=== PATIENT | female | born 1945 | race African-American/Black ===

== ENCOUNTER → 2016-05-24 | Outpatient (CLI) | payer BC, MEDICARE ==
[~2016-05-24] MED LIST: ACETAMINOPHEN PO; CLONIDINE HCL0.1 MG PO; COZAAR PO; HAIR, SKIN & N1 EACH PO; HCTZ PO; HYDRALAZINE HC100 MG PO; IBUPROFEN800 MG PO; LASIX PO; LORTAB 5/500 TA1 TA2 PO; NORVASC10 MG PO; POTASSIUM CHLO20 ME1 PO; SODIUM CHLORIDE1 GM PO
[2016-05-24 09:37] LABS: HEMATOCRIT 37.5 % (35.0-45.0); HEMOGLOBIN 12.8 gm/dL (12.0-16.0); MEAN CELL VOLUME 87.8 FL (83-96); MEAN CORPUSCULAR HEMOGLOBIN 30.1 PG (28-34); MEAN CORPUSCULAR HGB CONC 34.2 g/dL (30-36); MEAN PLATELET VOLUME 7.6 FL (6.5-11.5); RED BLOOD COUNT 4.26 X10e (3.90-5.30); RED CELL DISTRIBUTION WIDTH 13.9 % (11.0-15.5); WHITE BLOOD COUNT 7.7 X10e3 (4.0-10.5)
[2016-05-24 10:44] LABS: BUN/CREATININE RATIO 21.11; CALCIUM SERUM 9.6 mg/dL (8.4-10.2); CREATININE SERUM 0.9 mg/dL (0.6-1.4); GLOM FILT RATE Estimated 76.2 mL/min (>60); POTASSIUM 3.2 mmol/L (3.5-5.1)
== END | disposition home or self-care (01) ==
LOC: CLAB 09:04
PROVIDERS: Internal Medicine Nephrology
DX: N18.3 Chronic kidney disease, stage 3 (moderate) (principal)
CPT/HCPCS: 36415; 80048; 85027

== ENCOUNTER 2016-06-21 16:22 | Inpatient (IN) | payer BC, MEDICARE ==
--- NOTE | ~2016-06-21 | OR ---
Unit #: [id number] #: [id number] Patient: JILLIAN GATES [id number] [address] [place], [place] [address] [id number] MR#: [id number] NAME: JILLIAN GATES ROOM: 571 Date of Procedure: 06/26/2016 Admission Date: 06/21/2016 Surgeon: Joshua Gonzales M.D. : 1945 Attending Physician: Oral Burgess M.D. Primary Care Physician: Barry Rojas M.D. PROCEDURE OPERATIVE NOTE PROCEDURE PERFORMED Colonoscopy to cecum. INDICATIONS Patient with anemia, weight loss, as well as, elevated CEA levels undergoing colonoscopy. MEDICATION Monitored anesthesia. POSTOPERATIVE FINDINGS Colonoscopy completed to cecum: 1. No polyps, masses are seen. 2. Extensive diverticulosis. 3. Prep was poor leading to suboptimal visualization of the mucosa. Flat or smaller polyps could have been missed. PLAN Symptomatic treatment. DESCRIPTION OF PROCEDURE The patient was explained all the procedure risks and benefits along with risks and benefits of anesthesia. She was brought to the endoscopy room. Propofol anesthesia was given. Rectal exam was done which was normal. Colonoscope was lubricated, passed through rectum, advanced under direct vision all the way to cecum. Cecum was identified by ileocecal valve and appendiceal orifice. I then started to pull the scope out carefully looking. No polyps, masses, or colitis were seen. On retroflexion of rectum, small hemorrhoid seen. Scope gently pulled out. She tolerated it well. Dictated by... Zaire Alvarez/johann TD: 06/26/2016 11:44 JOB #: [id number] Unit #: [id number] #: [id number] Patient: JILLIAN GATES PROCEDURE OPERATIVE NOTE Page 1 of 1 X Joshua Gonzales MD X PROCEDURE OPERATIVE NOTE
--- NOTE | ~2016-06-21 | DS ---
Unit #: [id number] #: [id number] Patient: JILLIAN GATES [id number] [address] [address] [id number] I MR#: [id number] NAME: JILLIAN GATES ROOM: 571 Age: 70 Sex: F Admission Date: 06/21/2016 : 1945 Discharge Date: 06/27/2016 Attending Physician: Oral Burgess M.D. Primary Care Physician: Barry Rojas M.D. DISCHARGE SUMMARY ADDENDUM REPORT Please see discharge summary for details of hospital course. In addition, Cozaar was decreased to 25 mg p.o. daily, as well as Norvasc was decreased to 2.5 mg p.o. daily secondary to decreased blood pressure through hospital course. Sodium chloride tablets 2 grams p.o. t.i.d. is to be continued indefinitely per renal, as well as K-Dur 40 mEq is to be continued on a daily basis as well. Remainder of hospital course as well as medications is as stated above. Dictated by... Zaire Magana/mohan TD: 06/28/2016 11:09 JOB #: [id number] DISCHARGE SUMMARY Page 1 of 1 X Oral Burgess MD X DISCHARGE SUMMARY
--- NOTE | ~2016-06-21 | EKG ---
PATIENT: JILLIAN GATES UNIT #: [id number] Ventricular Rate: 77 BPM Atrial Rate: 77 BPM P-R Interval: 164 ms QRS Duration: 124 ms Q-T Interval: 486 ms QTC Calculation(Bezet): 549 ms P [place]: 64 degrees Calculated R [place]: 25 degrees Calculated T [place]: 98 degrees Diagnosis Line: Sinus rhythm with occasional Premature ventricular Diagnosis Line: complexes Diagnosis Line: Left ventricular hypertrophy with QRS widening Diagnosis Line: ST and T wave abnormality, consider lateral ischemia Diagnosis Line: Abnormal ECG Diagnosis Line: No previous ECGs available Diagnosis Line: Confirmed by DANE HUFFMAN MD ([id number]) on Diagnosis Line: 06/22/2016 11:08:40 PM INTERPRETING MD: GRACIE
--- NOTE | ~2016-06-21 | CT55 ---
[facility] A Service of [facility] RADIOLOGY TEXT RESULTS PATIENT: JILLIAN GATES LOCATION: [facility] 571- : 47 UNIT #: [id number] AGE: [address]: Bibiana Muhammad MD SEX: F ORDER DR: [id number] [place] [id number] [facility]. [place], [place] [address] [id number] I MR#: [id number] #: [id number] NAME: JILLIAN GATES : 1945 SEX: F STUDY DATE/TIME: 06/22/2016 10:41 UNIT: [facility] ROOM: [facility] STUDY DESCRIPTION: CT Chest W Con Attending Physician: Bibiana Muhammad M.D. Ordering Physician: Physician Non-Staff Primary Care Physician: Barry Rojas M.D. MEDICAL IMAGING REPORT This report is preliminary unless electronic signature is present EXAM CT of the chest with contrast INDICATIONS Cough, congestion and chest pain for 1.[address] yesterday. TECHNIQUE This CT exam was performed with one or more of the following radiation dose reduction techniques: automatic exposure control, adjustment of mA and/or kV according to patient size, and iterative reconstruction. CT of the chest was performed following administration of IV contrast. Coronal and sagittal reformatted images were obtained. Comparison is made with yesterday's noncontrast chest CT. FINDINGS There is no suspicious lymphadenopathy. There is no pleural effusion. Emphysema. Stable 6 mm nodule in the base of the right lower lobe. Enlargement of the main pulmonary artery which is nonspecific but can be seen of pulmonary tree hypertension. No infiltrates. Small hiatal hernia. The bone windows demonstrate degenerative changes thoracic spine. IMPRESSION No change since yesterday's study. No new infiltrates. Stable 6 mm pulmonary nodule right lung base. 6-month followup chest CT recommended to document stability. Dictated by... Dayne Grande M.D. THIS IS AN ELECTRONICALLY VERIFIED REPORT [facility] A Service of [facility] RADIOLOGY TEXT RESULTS PATIENT: JILLIAN GATES LOCATION: C5 571-01 : 47 UNIT #: [id number] AGE: [address]: Bibiana Muhammad MD SEX: F ORDER DR: Dayne Grande M.D. at 06/22/2016 4:05 PM Lisa TD: 06/22/2016 14:16 JOB #: [id number] MEDICAL IMAGING REPORT Page 1 of 1 COPY
--- NOTE | ~2016-06-21 | CT71 ---
[facility] A Service of [facility] RADIOLOGY TEXT RESULTS PATIENT: JILLIAN GATES LOCATION: C5 57-01 : [birth year] UNIT #: [id number] AGE: [address]: Oral Burgess MD SEX: F ORDER DR: [id number] [facility] [address] [facility]. [place], [place] [address] [id number] MR#: [id number] Acc #: [id number] NAME: JILLIAN GATES : 1945 SEX: F STUDY DATE/TIME: 06/21/2016 16:48 UNIT: [facility] ROOM: STUDY DESCRIPTION: CT Head Wo Contrast Attending Physician: Sukhi Quintero M.D. Ordering Physician: Sukhi Quintero M.D. Primary Care Physician: Barry Rojas M.D. MEDICAL IMAGING REPORT This report is preliminary unless electronic signature is present EXAM CT head. DATE OF EXAM 06/21/2016 HISTORY Headache. Sent to ER today for abnormal labs. Hypertension. TECHNIQUE CT head performed skull base through vertex without intravenous contrast. This CT exam was performed with one or more of the following radiation dose reduction techniques: automatic exposure control, adjustment of mA and/or kV according to patient size, and iterative reconstruction. COMPARISON No prior CTs of head for comparison. FINDINGS Brainstem unremarkable. Cerebellum and cerebral hemispheres show normal huang matter-white matter differentiation. No hemorrhage. No evidence of acute cortical ischemia. Periventricular and deep white matter tract hypodensities bilaterally, and relatively symmetric, likely reflecting small chronic, small vessel ischemic change given history of hypertension. The midline structures are nondisplaced. Basal ganglia are intact. Ventricles, cisterns and sulci show mild generalized enlargement consistent with mild generalized atrophy. No intra or extraaxial mass effect or abnormal intracranial fluid collection. Cavernous carotid arterial calcifications are seen. No indication of sinusitis. No acute bony abnormality. IMPRESSION [facility] A Service of [facility] RADIOLOGY TEXT RESULTS PATIENT: JILLIAN GATES LOCATION: [facility] 571 : 47 UNIT #: [id number] AGE: [address]: Oral Burgess MD SEX: F ORDER DR: 1. No acute abnormality is seen in the brain. If the patient has ongoing neurologic symptoms, consider follow-up imaging. 2. Periventricular and deep white matter tract probable sequelae of chronic microvascular ischemia. 3. Mild atrophy. 4. Vascular calcifications. Dictated by... Truong Rockwell M.D. THIS IS AN ELECTRONICALLY VERIFIED REPORT Truong Rockwell M.D. at 06/26/2016 10:29 AM Jose TD: 06/21/2016 18:39 JOB #: [id number] MEDICAL IMAGING REPORT Page 1 of 1 COPY
--- NOTE | ~2016-06-21 | DS ---
Unit #: [id number] #: [id number] Patient: JILLIAN GATES [id number] [address] [place], [place] [address] [id number] I MR#: [id number] NAME: JILLIAN GATES ROOM: 571 Age: 70 Sex: F Admission Date: 06/21/2016 : 1945 Discharge Date: 06/27/2016 Attending Physician: Oral Burgess M.D. Primary Care Physician: Barry Rojas M.D. DISCHARGE SUMMARY REASON FOR ADMISSION Abnormal laboratory studies. HISTORY OF PRESENT ILLNESS/HOSPITAL COURSE The patient is a very pleasant, 70-year-old female with a prior history of hypertension, who had not been feeling well for the past two or three weeks prior to admission. She had decreased appetite, lost approximately 30 to 40 pounds over past three to four months. She apparently had blood work done at her primary care physician's office which was noted for a sodium of 120, potassium of 2.2 and, therefore, was asked to come to the emergency room for further evaluation. She was subsequently admitted for hyponatremia, hypokalemia as well as weight loss. Initially, through her hospital course, she underwent routine laboratory studies including imaging studies as well. Her chest x-ray raised the possibility of a lung nodule and, in regards to the same, patient underwent a CT chest with contrast on 06/22/2016. It did show a stable 6 mm pulmonary nodule in the right lung base. Six-month followup chest CT was recommended to document stability. Dr. Bueno of [facility] followed the patient through her hospital course. She was treated appropriately for hyponatremia. At one time, her sodium level did rise to 130. This morning it is currently at 125. She did receive Samsca in hospital admission and she will be discharged with sodium chloride 2 g p.o. q.8. Duration as well as prescription will be verified by Dr. Bueno prior to discharge. It is requested that at time of discharge, she should follow up with her primary care physician to which she has requested to follow up with a new primary care physician and, therefore, information has been given for Dr. Mamta Resendiz at [facility] for followup. She should follow up in approximately 7 to 10 days for repeat BMP. Also noted was, in regards to patient's weight loss, she underwent GI consultation. The patient underwent both upper GI endoscopy as well as colonoscopy. Although her colonoscopy revealed poor prep, both studies were essentially unremarkable. At this point in time, the patient is clinically stable for discharge. Coincidentally, it was noted that she did undergo a CT abdomen and pelvis in regards to the aforementioned weight loss on 06/23/2016. It did reveal Unit #: [id number] #: [id number] Patient: JILLIAN GATES several kidney cysts which were noted and outpatient CT and/or MRI of kidneys was recommended. This too will be coordinated with patient's new primary care physician. The patient does have a prior history of a renal artery stent, patent on the left side. She does have renal artery stenosis as well as dense calcification which was noted on aforementioned CT. This too will be followed as an outpatient with vascular followup. FINAL DISCHARGE DIAGNOSES 1. Hyponatremia on admission, now improved. 2. Hypokalemia on admission, now resolved. 3. Pulmonary nodule, 6 mm, outpatient followup recommended. 4. Kidney cyst/renal artery stenosis. Outpatient followup for repeat CT with IV contrast as well as vascular evaluation. 5. Weight loss, approximately 30 to 40 pounds over the past three to four months likely secondary to decreased p.o. intake. 6. Anemia. Baseline hemoglobin close to 10. 7. History of hypertension. Discharge laboratory studies include a creatinine of 0.9, aforementioned hemoglobin of approximately 10, which likely represents patient's baseline. DISCHARGE MEDICATIONS 1. Tylenol 650 mg p.o. q.6 p.r.n. 2. Norvasc 10 mg p.o. daily. 3. Lasix 40 mg p.o. daily. 4. Clonidine 0.2 mg p.o. b.i.d. 5. Hydralazine 100 mg p.o. q.8. 6. Cozaar 25 mg p.o. daily. 7. Multivitamin daily. 8. Sodium chloride 2 g p.o. t.i.d. Duration to be determined by [facility] prior to discharge. Followup as mentioned above. Dictated by... Zaire Magana TD: 06/28/2016 11:07 JOB #: [id number] DISCHARGE SUMMARY Page 1 of 1 X Oral Burgess MD DISCHARGE SUMMARY
--- NOTE | ~2016-06-21 | CO ---
Unit #: [id number] #: [id number] Patient: JILLIAN GATES [id number] [address] [place], [place] [address] [id number] MR#: [id number] NAME: JILLIAN GATES ROOM: 571 Age: 70 Sex: F Admission Date: 06/21/2016 : 1945 Attending Physician: Bibiana Muhammad M.D. Primary Care Physician: Barry Rojas M.D. CONSULTATION REPORT REASON FOR CONSULTATION Weight loss. HISTORY OF PRESENTING ILLNESS The patient is a very pleasant 70-year-old female who actually presented to the emergency department following labs collected at Dr. Rose's office which were abnormal. On workup in the ER, she reported a 30 to 40 pound weight loss over the past couple of years. She has never had a colonoscopy done. At this time she denies any GI complaints including abdominal pain, change in bowel habits, blood in stool, nausea, vomiting, GERD or dysphagia. PAST MEDICAL HISTORY Notable for: 1. Hypertension. 2. Chronic kidney disease. 3. She has also had a renal artery stent placed in October 2015. ALLERGIES None known. HOME MEDICATIONS Hydrochlorothiazide. SOCIAL HISTORY The patient lives at home. Smokes three to four cigarettes daily. Denies alcohol or illicit drugs. FAMILY HISTORY Notable for a sister with hypertension. REVIEW OF SYSTEMS A complete ten point review of systems was completed and negative except as mentioned in the HPI. PHYSICAL EXAMINATION GENERAL: The patient is a very pleasant 70-year-old female, currently in no acute distress. VITAL SIGNS: Temperature is 97.8, pulse is 88, respirations 16, blood pressure is 161/65. HEENT: PERRLA. NECK: Supple. CARDIAC: S1, S2. LUNGS: Clear to auscultation. Unit #: [id number] #: [id number] Patient: JILLIAN GATES ABDOMEN: Soft, rounded. Nontender, nondistended. Positive bowel sounds. NEURO: The patient is alert and oriented x3. DIAGNOSTIC STUDIES IMAGING: CT abdomen and pelvis was completed which showed no acute findings. However, did show right renal atrophy as well as low density lesions in the kidneys which were too small to characterize. A lesion was also found in the right lower lobe and recommended outpatient followup. LABORATORY DATA: Chemistry this morning showed a sodium of 130, potassium 3.1, CEA was 2.7. (1) is still pending. White count 7.8, hemoglobin is 10.7, hematocrit 30.9, platelets are 196. ASSESSMENT AND PLAN 1. Weight loss: Will plan for a colonoscopy tomorrow. Prep today. 2. Hypokalemia and hyponatremia, being corrected and worked up by renal. 3. Hypertension. Thank you for this interesting consult. Will continue to follow along. Dictated by... Ban Johnson A.P.R.N. for Zaire Alvarez/bryan TD: 06/25/2016 12:51 JOB #: [id number] CONSULTATION REPORT Page 1 of 1 X X CONSULTATION REPORT
--- NOTE | ~2016-06-21 | A ---
[facility] Nutrition Therapy DATE: 06/22/16 Patient: JILLIAN GATES Physician: MORIS Address: [address] [place] [address] ROAD Room/Bed: [address] [place] [address], Zip: [place] [address] Admit Date: 06/21/16 Date of : [birth year] Height: 5 3 Weight: 101 46.1 NUTRITIONAL ASSESSMENT: REASON: LOW BMI + CONSULT PT IS 70 Y.O. FEMALE ADMITTED FOR HYPONATREMIA, HYPOKALEMIA PMH: HTN, TOBACCO ABUSE Anthropometrics: 5'3", WT: 101-121# (46KG-55 KG), BMI: 17.9-21.4, 88%-105%IBW -PER FAMILY, PT WEIGHS ~120# BUT PT LOOKS "SMALLER" Labs: GLU: 117, NA+: 121 Meds: ZOFRAN, NACL, KCL I/O & Bowel function: 240/3 Skin Integrity: NO KNOWN SKIN ISSUES Estimated Nutrition Needs: INCREASED NUTRIENT NEEDS 2' PT UNDERWEIGHT, WEIGHT LOSS NOTED, DECREASED PO INTAKE AND APPETITE Assessment: CHART REVIEWED AND EVENTS NOTED. PT SEEN FOR LOW BMI + CONSULT. PT SLEEPY/LETHAGIC AT TIME OF VISIT. FAMILY REPORTS PT TO HAVE DECREASED PO INTAKE 2' DECREASED APPETITE PAST WEEK D/T "NOT FEELING WELL". FAMILY ADDS THAT PT HAS LOST ~30-40# PAST 2 YEARS. OF NOTE, FAMILY STATES PT IS ALLERGIC TO STRAWBERRIES. THIS RD ENCOURAGED SMALL FREQUENT MEALS + SUPPLEMENT INTAKE, PT AGREED TO ENSURE SHAKES BID W/MEALS, RD TO ORDER. FAMILY REPORTED NO DIET QUESTIONS AT THIS TIME. RD TO FOLLOW. Dx: INADEQUATE PROTEIN-ENERGY INTAKE R/T DECREASED APPETITE AEB LOW BMI OF 17.9?, ~20-30# WEIGHT LOSS NOTED IN PAST 2 YEARS, FAMILY REPORT ABOVE. Intervention: 1. HH + FLUID RESTRICTION 2. RD CONSULT 3. ENSURE SHAKES BID 4. 6 SMALL MEALS Monitoring, Evaluation and Goals: 1. ORAL INTAKE; CONSUME MEALS AND SUPPLEMENTS W/NO C/O N/V/D (PO>50%) 2. WEIGHTS; PROMOTE WEIGHT GAIN; PREVENT FURTHER UNINTENTIONAL WEIGHT LOSS 3. LABS; WNL: NA+ 4. GI; PROMOTE REGULAR GI FUNCTION MONITOR: [facility] Nutrition Therapy DATE: 04/28/17 Patient: JILLIAN GATES Physician: MORIS Address: [address] [place] [address] Room/Bed: [address] [place] [address], Zip: [place] [address] Admit Date: 06/21/16 Date of : [birth year] Height: 5 3 Weight: 101 46.1 -PO INTAKE/APPETITE -WEIGHTS -SUPPLEMENT INTAKE Recommendations: 1. RECOMMEND TO CHANGE CURRENT DIET ORDER TO REGULAR TO BETTER FACILITATE PO INTAKE 2. ORDER LISANDRA ENSURE SHAKES BID W/MEALS 3. ORDER 6 SMALL MEALS TO CURRENT DIET ORDER 4. APPRECIATE FAMILY AND STAFF TO ENCOURAGE PO AND SUPPLEMENT INTAKE. ASSIST W/ORDERING MEALS 5. CONSIDER APPETITE STIMULANT, IF PO INTAKE MINIMAL?? RD WILL F/U PER PROTOCOL PT IS MODERATELY COMPROMISED Respectfully, SILVIA KELLEY MS, RD, LD Food and Nutritional Services [facility] cc: client file
--- NOTE | ~2016-06-21 | CT2 ---
[facility] A Service of [facility] & [facility] & [facility] RADIOLOGY TEXT RESULTS PATIENT: JILLIAN GATES LOCATION: [facility] 571-01 : 47 UNIT #: [id number] AGE: [address]: Oral Burgess MD SEX: F ORDER DR: [id number] [facility] [address] [place], [place] [address] [id number] I MR#: [id number] #: [id number] NAME: JILLIAN GATES : 1945 SEX: F STUDY DATE/TIME: 06/23/2016 16:05 UNIT: [facility] ROOM: [facility] STUDY DESCRIPTION: CT Abd and Pelv W Cont Attending Physician: Bibiana Muhammad M.D. Ordering Physician: Oral Burgess M.D. Primary Care Physician: Barry Rojas M.D. MEDICAL IMAGING REPORT This report is preliminary unless electronic signature is present EXAM CT abdomen and pelvis without IV contrast. COMPARISON CT chest dated June 22, 2016 and June 21, 2016. INDICATION 70-year-old female with generalized abdominal pain for 2 days. Unintentional 30 pounds weight loss over the last [address] exam was performed with one or more of the following radiation dose reduction techniques: automatic exposure control, adjustment of mA and/or kV according to patient size, and iterative reconstruction. FINDINGS Axial CT imaging of the abdomen and pelvis was performed after IV administration of a standard dose of Isovue-370. Coronal and sagittal reformats were constructed. There is density layering within the gallbladder lumen, perhaps reflecting vicarious excretion of contrast from CT chest performed yesterday. Alternatively this may represent sludge. There is a 6 mm lesion in the anterior spleen which is technically too small to characterize and most likely represents a benign splenic cyst. Pancreas and adrenal glands are unremarkable. There is marked atrophy of the right kidney. There are 2 low-density lesions in the right kidney which are too small to characterize. There is also an area of focal scarring within the anterior/inferior pole of the right kidney. In the left kidney, there is a 1.2 cm indeterminate density lesion with a separate indeterminate density hypoattenuating 9 mm lesion and a separate low-density lesion in the left kidney measuring 5 mm, too small to characterize. There is also a peripheral tiny hypodense lesion within the superior pole left kidney measuring 4 mm, too small to characterize. There are several other tiny low-density lesions in the left kidney which STS. [facility] A Service of [facility] & [facility] & [facility] RADIOLOGY TEXT RESULTS PATIENT: JILLIAN GTAES LOCATION: [facility] 571-01 : 47 UNIT #: [id number] AGE: [address]: Oral Burgess MD SEX: F ORDER DR: are too small to characterize. The left ureter appears prominent as compared to the right, possibly due to increased function of the left kidney as compared to the right. No evidence of obstructive uropathy. Urinary bladder is unremarkable. There are bilateral pelvic phleboliths. 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 No suspicious adnexal lesions are seen on this exam. The appendix is normal. There is no evidence of bowel obstruction. There are colonic diverticula without evidence of acute diverticulitis. No free fluid or pneumoperitoneum. There is calcified/noncalcified plaque within the common femoral arteries extending into the superficial femoral arteries bilaterally. There is also dense calcification of the iliac arteries which remain patent. There is a left renal artery stent. There are calcifications of the proximal celiac and superior mesenteric arteries as well as the proximal right renal artery. There is at least mild stenosis at the origins of the celiac and superior mesenteric arteries due to calcified plaque. Left renal artery stent remains patent. No evidence of venous thrombosis. No adenopathy. Subpleural ground-glass attenuation in the right lower lobe may represent subsegmental atelectasis or possibly early interstitial lung disease. This appears stable from CT chest performed yesterday and the day prior. Lumbar scoliosis. Multilevel degenerative facet disease of the lumbar spine. There is grade 1 degenerative anterolisthesis of L4 on L5 of approximately 6 mm. There is degenerative disc height loss at this level as well. Small posterior disc protrusion at multiple levels of the lumbar spine. Endplate sclerosis at T9-T10 with complete disc height loss. There is small posterior disc osteophyte complex at this level as well. IMPRESSION 1. No acute findings in the chest or imaged abdomen and pelvis. 2. Layering density within the gallbladder lumen suggestive of vicarious excretion of IV contrast administered yesterday. 3. Marked right renal atrophy, possibly due to longstanding right renal artery stenosis as there is dense calcification of the origin of the right renal artery, and there is a patent left renal artery stent. 4. Bilateral subcentimeter low-density lesions of the kidneys which are too small to characterize. Statistically these likely represent cysts. There are few indeterminate low-density lesions in the left kidney measuring up to 1.2 cm and 0.9 cm. One could consider CT abdomen with and without IV contrast or MR abdomen with and without IV contrast for further evaluation and to exclude solid neoplasm. 5. Diffuse arterial calcifications of the abdomen and pelvis as described in the body of the report. This is likely causing at least mild stenosis at the origins of the celiac and superior mesenteric arteries. 6. Colonic diverticulosis without evidence of acute diverticulitis. 7. Scoliosis with diffuse degenerative changes of the lumbar spine as described in the body of the report. [facility]. [facility] A Service of [facility] RADIOLOGY TEXT RESULTS PATIENT: JILLIAN GATES LOCATION: [place] [address] : 47 UNIT #: [id number] AGE: [address]: Oral Burgess MD SEX: F ORDER DR: 8. Grossly stable subpleural ground-glass attenuation in the right lower lobe, possibly reflecting early interstitial lung disease. This could be evaluated as an outpatient with high-resolution CT without IV contrast with prone imaging. Dictated by... Hao Garner M.D. THIS IS AN ELECTRONICALLY VERIFIED REPORT Hao Garner M.D. at 06/27/2016 3:38 PM LUIS ARMANDO/yeimy TD: 06/23/2016 22:07 JOB #: [id number] MEDICAL IMAGING REPORT Page 1 of 1 COPY
--- NOTE | ~2016-06-21 | CT57 ---
[facility] A Service of [facility] & [facility] RADIOLOGY TEXT RESULTS PATIENT: JILLIAN GATES LOCATION: [facility] 571-01 : 47 UNIT #: [id number] AGE: [address]: Oral Burgess MD SEX: F ORDER DR: [id number] [facility] [address] [place], [place] [address] [id number] I MR#: [id number] Acc #: [id number] NAME: JILLIAN GATES : 1945 SEX: F STUDY DATE/TIME: 06/21/2016 20:41 UNIT: [facility] ROOM: [facility] STUDY DESCRIPTION: CT Chest Wo Cont Attending Physician: Bibiana Muhammad M.D. Ordering Physician: Bibiana Muhammad M.D. Primary Care Physician: Barry Rojas M.D. MEDICAL IMAGING REPORT This report is preliminary unless electronic signature is present EXAM CT chest 06/21/2016 HISTORY Abnormal chest x-ray, chest pain, cough, congestion for 1.[address] chest performed without administration of these contrast. Study somewhat limited in the absence of intravenous contrast. This CT exam was performed with one or more of the following radiation dose reduction techniques: automatic exposure control, adjustment of mA and/or kV according to patient size, and iterative reconstruction. FINDINGS Visualized thyroid unremarkable. No axillary mediastinal or hilar adenopathy. The heart is normal to upper limits of normal in size. There are coronary arterial calcifications. No pleural effusions. The liver, gallbladder, spleen, pancreas, adrenal glands are unremarkable. Generalized moderate to marked right renal atrophy. The left kidney has an appearance suggesting some degree of compensatory hypertrophy. There is a small hyperdense focus anterior mid left kidney measuring about 7 mm in diameter. Probably a hyperdense cyst. Best further characterized with ultrasound. Similar subcentimeter hyperdense focus lower pole of the atrophic right kidney, probably represents complicated cyst as well. Prior renal ultrasound in May 2015 showed simple-appearing right renal cysts. No upper abdominal adenopathy. Small hiatal hernia. Visualized esophagus and stomach otherwise unremarkable. The visualized small bowel and colon unremarkable. Retained mucus in trachea. Respiratory motion artifact degrading assessment of lungs. Centrilobular emphysema throughout the STS. [facility] A Service of [facility] & [facility] RADIOLOGY TEXT RESULTS PATIENT: JILLIAN GATES LOCATION: [facility] 571-01 : 47 UNIT #: [id number] AGE: [address]: Oral Burgess MD SEX: F ORDER DR: lungs. Dependent atelectasis at the lung bases, more pronounced on the right than left. No suspicious nodule. There are atherosclerotic arterial calcifications. No aneurysm. Prior left renal artery stenting. Thoracic scoliosis convex to left upper thoracic spine and to right middle to lower thoracic spine. Associated degenerative changes in the spine. No acute-appearing bony abnormality. Review of the pulmonary parenchyma shows a 6 mm nodule at the extreme right lung base adjacent to the diaphragmatic pleura. It is noncalcified. A 6-month CT followup recommended, unless there are prior studies demonstrating prolonged stability. This does not correspond to the location of possible nodule seen on today's earlier chest radiograph. IMPRESSION 1. Please see complete dictation above for full details. There is extensive centrilobular emphysema throughout the lungs bilaterally. 2. Some relatively mild patchy subpleural peripheral densities in the bilateral dependent lungs, right greater than left, favored to represent mild atelectasis superimposed on chronic interstitial change. The possibility of mild peripheral right lower lobe pneumonitis is not strictly excluded but is felt less likely. There is no dense airspace disease. 3. 6 mm noncalcified pulmonary nodule right lung base. Indeterminate appearance. 6-month CT followup recommended, unless there are outside studies demonstrating prolonged, at least 2-year stability. This does not correspond to the location of suspected nodule on today's chest radiograph. No nodule seen in the right upper lung zone to account for the chest radiograph finding. 4. Atherosclerotic arterial calcifications in coronary and systemic circulation. Evidence of prior left renal artery stenting. 5. Not mentioned in body of report above, there is mild dilatation of the main pulmonary artery measuring 3.1 cm in diameter. This may be a reflection of underlying pulmonary arterial hypertension. 6. Moderate to marked atrophy of the right kidney. 7. Subcentimeter hyperdense foci in the bilateral kidneys, likely representing complicated cysts. Best further characterized with directed ultrasound. If ultrasound is inconclusive, then these findings could be further clarified with multiphase contrast-enhanced MRI or CT if the patient is a candidate. 8. Scoliosis and degenerative changes in the spine. No acute-appearing bony abnormality. Dictated by... Truong Rockwell M.D. THIS IS AN ELECTRONICALLY VERIFIED REPORT Truong Rockwell M.D. at 06/26/2016 10:29 AM [facility] A Service of [facility] RADIOLOGY TEXT RESULTS PATIENT: JILLIAN GATES LOCATION: [facility] 571-01 : 47 UNIT #: [id number] AGE: [address]: Oral Burgess MD SEX: F ORDER DR: TAE/daniel TD: 06/21/2016 21:35 JOB #: [id number] MEDICAL IMAGING REPORT Page 1 of 1 COPY
--- NOTE | ~2016-06-21 | CR72 ---
[facility] A Service of [facility] & [facility] RADIOLOGY TEXT RESULTS PATIENT: JILLIAN GATES LOCATION: [facility] 571-01 : 47 UNIT #: [id number] AGE: [address]: Bibiana Muhammad MD SEX: F ORDER DR: [id number] [facility] [address] [place], [place] [address] [id number] I MR#: [id number] Acc #: [id number] NAME: JILLIAN GATES : 1945 SEX: F STUDY DATE/TIME: 06/22/2016 22:22 UNIT: [facility] ROOM: [facility] STUDY DESCRIPTION: CR Chest Single View Portable Attending Physician: Bibiana Muhammad M.D. Ordering Physician: Bibiana Muhammad M.D. Primary Care Physician: Barry Rojas M.D. MEDICAL IMAGING REPORT This report is preliminary unless electronic signature is present Exam Portable AP view of the chest COMPARISON June 21, [address] chest dated June 21, 2016. INDICATION 70-year-old female post PICC placement. FINDINGS Right upper extremity PICC tip terminates in the lower SVC. There is scoliosis of the thoracic spine. Cardiomediastinal silhouette is within normal limits. No evidence of pneumothorax or significant pleural effusion. Lung volumes are slightly diminished from comparison with increasing band-like opacity in the right lower lobe most consistent with atelectasis. There are increasing band-like opacities within the lingula as well also consistent with atelectasis. There is calcification of the aortic arch. There is diffuse spondylosis of the thoracic spine. IMPRESSION 1. Right upper extremity PICC terminates in the SVC. No evidence of complication. 2. Diminished lung volumes from comparison of earlier today with new band-like opacities in the right lung base and lingula favoring atelectasis. Dictated by... Hao Garner M.D. THIS IS AN ELECTRONICALLY VERIFIED REPORT Hao Garner M.D. at 06/25/2016 12:04 PM LUIS ARMANDO/karenr [facility] A Service of [facility] & [facility] RADIOLOGY TEXT RESULTS PATIENT: JILLIAN GATES LOCATION: [facility] 571-01 : 47 UNIT #: [id number] AGE: [address]: Bibiana Muhammad MD SEX: F ORDER DR: TD: 06/23/2016 01:19 JOB #: [id number] MEDICAL IMAGING REPORT Page 1 of 1 COPY
--- NOTE | ~2016-06-21 | CR72 ---
[facility] A Service of [facility] RADIOLOGY TEXT RESULTS PATIENT: JILLIAN GATES LOCATION: [facility] 571-01 : 47 UNIT #: [id number] AGE: [address]: Bibiana Muhammad MD SEX: F ORDER DR: [id number] [place] [id number] [facility] [place], [place] [address] [id number] E MR#: [id number] Acc #: [id number] NAME: JILLIAN GATES : 1945 SEX: F STUDY DATE/TIME: 06/21/2016 16:26 UNIT: [facility] ROOM: STUDY DESCRIPTION: CR Chest Single View Portable Attending Physician: Sukhi Quintero M.D. Ordering Physician: Sukhi Quintero M.D. Primary Care Physician: Barry Rojas M.D. MEDICAL IMAGING REPORT This report is preliminary unless electronic signature is present EXAM Portable chest INDICATIONS Minus cough, congestion for 1.5 weeks. COMPARISON No comparisons are available. FINDINGS Questionable tiny nodular density projecting over the right upper zone. This projects over the posterior fifth rib shadow on the right. Linear scarring left mid zone. No consolidation. Heart size normal. Atherosclerotic calcification of the aorta. Mild scoliosis. IMPRESSION Tiny nodular density projecting over the posterior right fifth rib shadow. It is indeterminate. It may be a small lung nodule or possibly artifactual. I would suggest correlation with any outside PA and lateral chest x-rays, otherwise a short-interval followup PA and lateral chest x-ray could be performed to document stability or clearing of this finding. There are no acute findings in the chest. Dictated by... Dayne Grande M.D. THIS IS AN ELECTRONICALLY VERIFIED REPORT Dayne Grande M.D. at 06/22/2016 9:33 AM ARS/to TD: 06/21/2016 18:22 JOB #: [id number] [facility] A Service of [facility] RADIOLOGY TEXT RESULTS PATIENT: JILLIAN GATES LOCATION: [facility] 571-01 : 47 UNIT #: [id number] AGE: [address]: Bibiana Muhammad MD SEX: F ORDER DR: MEDICAL IMAGING REPORT Page 1 of 1 COPY
--- NOTE | ~2016-06-21 | HP ---
Unit #: [id number] #: [id number] Patient: JILLIAN GATES [address] [facility] [address] [place], [place] [address] [id number] E MR#: [id number] NAME: JILLIAN GATES ROOM: Age: 70 Sex: F Admission Date: 06/21/2016 : 1945 Attending Physician: Sukhi Quintero M.D. Primary Care Physician: Barry Rojas M.D. HISTORY AND PHYSICAL CHIEF COMPLAINT Abnormal labs. HISTORY OF PRESENT ILLNESS The patient is a 70-year-old female with past medical history of hypertension who presented to the emergency department for evaluation of the above. The patient states that she has not been feeling well for about the past two to three weeks. She reports intermittent headache. She has also had intermittently productive cough and generalized weakness. She denies any fever, no chest pain. She has had decreased appetite but no vomiting or diarrhea. She states that she has lost about 30 to 40 pounds over the past two years. She apparently had blood work done today for an appointment that she has with Dr. Rose next week. She was called by his office later this office and told to come to the emergency department due to abnormal labs. In the emergency department, initial pulse and blood pressure were 84 and 219/90 respectively. Laboratory notable for sodium 120, potassium 2.2. She was given 50 mg of hydrochlorothiazide, 40 mEq of potassium p.o. as well as two 10 mEq IV runs of potassium. Additionally, she was started on normal saline at 100 mL per hour. She is being admitted to [facility] for evaluation and further treatment. PAST MEDICAL HISTORY 1. Patient denies any hospitalizations. 2. Hypertension. 3. Possibly chronic kidney disease, followed by Dr. Rose. PAST SURGICAL HISTORY What sounds like renal artery stent. This was at [facility] in October 2015. ALLERGIES No known allergies. HOME MEDICATIONS Hydrochlorothiazide. Home medications will need to be reviewed and verified. SOCIAL HISTORY The patient lives alone. She smokes 3 to 4 cigarettes daily. She denies Unit #: [id number] #: [id number] Patient: JILLIAN GATES alcohol use. She works at a [employer]. FAMILY HISTORY Notable for her sister having hypertension. REVIEW OF SYSTEMS A complete review of systems is negative except as indicated in the HPI. The patient states that she was taken off of an unknown blood pressure medication about 3 months ago and placed on hydrochlorothiazide. PHYSICAL EXAMINATION VITAL SIGNS: Temperature 97.8, pulse 84, respirations 16, blood pressure 210/90, oxygen saturation 96% on room air. GENERAL: The patient is an female who is awake and alert in no acute distress. HEENT: Head is atraumatic. Mucous membranes are moist. NECK: Supple. Trachea is midline. LUNGS: Clear to auscultation bilaterally with no increased work of breathing. HEART: Regular rate and rhythm. ABDOMEN: Soft, nontender. Bowel sounds present in all four quadrants. EXTREMITIES: Nontender with no pedal edema. NEUROLOGIC: Patient is awake and alert. She is oriented x3. She follows commands. PSYCHIATRIC: Mood and affect are normal. Patient is cooperative. SKIN OF EXAMINED AREAS: Warm and dry. DIAGNOSTIC STUDIES LABORATORY: Urinalysis notable for 3+ protein, 1+ blood with 0-2 rbc's. Comprehensive metabolic panel notable for sodium 120, potassium 2.2, chloride 75, alkaline phosphatase 103, magnesium 1.9. INR is 1. Complete blood count is essentially normal. IMAGING: Chest x-ray shows a tiny nodular density that is indeterminate concerning for possible small lung nodule versus artifact. CT of the head shows no acute abnormality. CARDIOVASCULAR: EKG shows sinus rhythm with occasional PVCs at a rate of 77 beats per minute. There is a lot of baseline artifact. ASSESSMENT The patient is a 70-year-old female with: 1. Generalized weakness. 2. Hyponatremia. The patient's sodium has been as low as 131 on 05/24/2016. It is 120 today. She is on hydrochlorothiazide which could be contributing. It also sounds like she has had decreased p.o. intake. 3. Hypokalemia. The patient received a total of 60 mEq of potassium in the emergency department. Again, the patient is on hydrochlorothiazide which could be contributing. 4. Uncontrolled hypertension. The patient states that she has been taking her medications as prescribed. She received 50 mg of hydrochlorothiazide p.o. in the emergency department. 5. Lung nodule noted on chest x-ray. 6. Weight loss. The patient reports 30 to 40 pound weight loss over the past year. 7. Possible chronic kidney disease. Unit #: [id number] #: [id number] Patient: JILLIAN GATES 8. Tobacco abuse. PLAN 1. Admit to intermediate level. 2. Healthy-heart diet if passes bedside swallow. 3. Normal saline at 75 mL per hour. 4. PT/OT to evaluate and treat. 5. Fall precautions. 6. Urine sodium and osmolality. 7. Serum osmolality. 8. Check magnesium level. 9. Potassium magnesium protocol. 10. Repeat BMP later this evening to follow up hyponatremia. 11. Neuro checks. 12. Consult Dr. Rose regarding hyponatremia. 13. P.r.n. hydralazine. 14. Serial cardiac enzymes. 15. CT of the chest for further evaluation of lung nodule. 16. Repeat labs in the morning including magnesium. 17. SCDs for DVT prophylaxis. 18. Additional workup and consultants based on above. Dictated by Zaire Landyr/dahlia TD: 06/21/2016 20:20 JOB #: [id number] HISTORY AND PHYSICAL Page 1 of 1 X Bibiana Muhammad MD X HISTORY AND PHYSICAL
--- NOTE | ~2016-06-21 | CO ---
Unit #: [id number] #: [id number] Patient: JILLIAN GATES [id number] [address] [place], [place] [address] [id number] MR#: [id number] NAME: JILLIAN GATES ROOM: 571 Age: 70 Sex: F Admission Date: 06/21/2016 : 1945 Attending Physician: Bibiana Muhammad M.D. Primary Care Physician: Barry Rojas M.D. CONSULTATION REPORT REASON FOR CONSULTATION Hyponatremia and hypokalemia. HISTORY OF PRESENT ILLNESS The patient is a 70-year-old -[place] woman with known history of hypertension status post left renal artery stent placement for renal artery stenosis on hydrochlorothiazide, on chlorthalidone at home and Losartan, sent in from the office because the sodium was noted to be 122 with a potassium of 2.4 on routine lab draw. The patient does not report any vomiting, any diarrhea. No fevers. No chills. The patient also noted to have a nodule on chest x-ray. Will do a CT scan. The patient's home medications included chlorthalidone and Losartan. REVIEW OF SYSTEMS CARDIOVASCULAR: No chest pain. RESPIRATORY: No cough, expectoration. GASTROINTESTINAL: No diarrhea. No vomiting. GENITOURINARY: No hematuria. No dysuria. PHYSICAL EXAMINATION GENERAL: Patient is awake, alert. VITAL SIGNS: Temperature is 98.1, heart rate 86 per minute, blood pressure 211/98. HEENT: Head is atraumatic. Extraocular movements are intact. NECK: Supple. There is no elevation of the JVD. CHEST: Decreased air entry in the bases. HEART: S1, S2 audible. There is no S3, no S4. ABDOMEN: Soft. There is no organomegaly. No guarding. No rigidity. No rebound tenderness. There is trace edema. CENTRAL NERVOUS SYSTEM: Motor system is intact. Cerebellar system is intact. DIAGNOSTIC STUDIES LABORATORY: WBC 10.7, H and H is 13.4 and 38.4 with a platelet count of 318,000. Magnesium is 1.8. Sodium 121, potassium is 2.5, chloride 78, CO2 is 28, BUN 15, creatinine 0.7, calcium 9.5 with glucose 95. Urinalysis shows 0-2 WBC, RBC. Proteinuria is about 4 g. IMPRESSION 1. Hyponatremia: Possible contribution from chlorthalidone and Losartan. We will hold both of those and fluid restrict 1000 mL. Check ADH state. Also, consider workup for a lung mass and malignancy. Will recheck in the afternoon. 2. Hypokalemia: Disproportionately low. I will consider tubular Unit #: [id number] #: [id number] Patient: YAJAIRA,JILLIAN wasting, although contribution from chlorthalidone is a possibility. 3. Nephrotic range proteinuria: Will consider renal biopsy and workup for paraproteinemia. 4. Hypertension: Start hydralazine 100 mg q.8 hours. 5. History of left renal artery stenosis: Check renin aldosterone level. Dictated by... Zaire Fierro TD: 06/22/2016 10:31 JOB #: [id number] CONSULTATION REPORT Page 1 of 1 X Naun Rose MD X CONSULTATION REPORT
[2016-06-21 16:20] LABS: BASOPHIL% 0.5 % (0-2.5); EOSINOPHIL% 0.2 % (0.0-7.0); HEMATOCRIT 40.1 % (35.0-45.0); HEMOGLOBIN 14.3 gm/dL (12.0-16.0); LYMPHOCYTE# 1.7 X10e3 (1.0-3.5); MEAN CORPUSCULAR HEMOGLOBIN 30.2 PG (28-34); MEAN CORPUSCULAR HGB CONC 35.6 g/dL (30-36); MEAN PLATELET VOLUME 7.6 FL (6.5-11.5); MONOCYTE# 0.6 X10e3 (0-1.0); MONOCYTE% 8.2 % (3.0-12.0); NEUTROPHIL# 4.8 X10e3 (1.5-7.1); NEUTROPHIL% 67.1 % (40-75); PLATELET COUNT 327 X10e3 (140-420); RED BLOOD COUNT 4.72 X10e (3.90-5.30); RED CELL DISTRIBUTION WIDTH 13.6 % (11.0-15.5); WHITE BLOOD COUNT 7.1 X10e3 (4.0-10.5)
[~2016-06-21 16:22] MED LIST changes: -ACETAMINOPHEN PO; -CLONIDINE HCL0.1 MG PO; -COZAAR PO; -HAIR, SKIN & N1 EACH PO; -HCTZ PO; -HYDRALAZINE HC100 MG PO; -LASIX PO; -NORVASC10 MG PO; -POTASSIUM CHLO20 ME1 PO; -SODIUM CHLORIDE1 GM PO
[2016-06-21 16:25] LABS: DIFF IND NO
[2016-06-21 16:33] LABS: PARTIAL THROMBOPLASTIN TIME 28.5 SECONDS (23.5-31.3); PROTHROMBIN TIME (PATIENT) 10.9 SECONDS (9.6-11.5)
[2016-06-21 16:49] LABS: URINE SOURCE CLEAN CATCH
[2016-06-21 16:51] LABS: ALBUMIN SERUM 4.4 g/dL (3.5-5.0); BILIRUBIN, DIRECT 0.2 mg/dL (0.0-0.2); BILIRUBIN,INDIRECT 0.8 mg/dL (0.0-0.9); BUN/CREATININE RATIO 17.77; CALCIUM SERUM 9.8 mg/dL (8.4-10.2); CREATININE SERUM 0.9 mg/dL (0.6-1.4); GLOM FILT RATE Estimated 76.2 mL/min (>60); MAGNESIUM 1.9 mg/dL (1.6-3.0); PROTEIN TOTAL SERUM 8.1 g/dL (6.0-8.3)
[2016-06-21 16:53] LABS: URINE APPEARANCE CLEAR; URINE BILIRUBIN NEG (NEG); URINE BLOOD 1+ (NEG); URINE COLOR YELLOW; URINE GLUCOSE NEG (NEG); URINE KETONE NEG (NEG); URINE LEUKOCYTE ESTERASE NEG (NEG); URINE NITRATE NEG (NEG); URINE PH 7.5 (5-8); URINE PROTEIN 3+ (NEG); URINE SPECIFIC GRAVITY 1.008 (1.003-1.035)
[2016-06-21 16:55] LABS: POTASSIUM 2.2 mmol/L (3.5-5.1)
[2016-06-21 16:56] LABS: URBCS1 AUWI 0-2 /[HPF] (0-2); URINE BACTERIA AUWI NEG (NEGATIVE); URINE SQUAMOUS EPITHELIAL CELL NONE SEEN /[HPF]; UWBCS1 AUWI 0-2 (0-5)
[2016-06-21 16:59] LABS: CULTURE INDICATED? NO
[2016-06-21 21:03] LABS: BUN/CREATININE RATIO 21.42; CALCIUM SERUM 9.5 mg/dL (8.4-10.2); CREATININE SERUM 0.7 mg/dL (0.6-1.4); GLOM FILT RATE Estimated 103.2 mL/min (>60); MAGNESIUM 1.8 mg/dL (1.6-3.0)
[2016-06-21 21:06] LABS: MB 5.6 ng/ml; POTASSIUM 2.5 mmol/L (3.5-5.1)
[2016-06-22] MEDS ORDERED: HCTZ PO (08:04)
[2016-06-22 08:31] LABS: BASOPHIL% 0.3 % (0-2.5); DIFF IND NO; HEMATOCRIT 38.4 % (35.0-45.0); HEMOGLOBIN 13.4 gm/dL (12.0-16.0); LYMPHOCYTE# 0.7 X10e3 (1.0-3.5); LYMPHOCYTE% 6.7 % (17.0-45.0); MEAN CELL VOLUME 86.5 FL (83-96); MEAN CORPUSCULAR HEMOGLOBIN 30.2 PG (28-34); MEAN CORPUSCULAR HGB CONC 34.9 g/dL (30-36); MEAN PLATELET VOLUME 7.5 FL (6.5-11.5); MONOCYTE# 0.5 X10e3 (0-1.0); MONOCYTE% 4.3 % (3.0-12.0); NEUTROPHIL# 9.5 X10e3 (1.5-7.1); NEUTROPHIL% 88.7 % (40-75); PLATELET COUNT 318 X10e3 (140-420); RED BLOOD COUNT 4.44 X10e (3.90-5.30); RED CELL DISTRIBUTION WIDTH 13.8 % (11.0-15.5); WHITE BLOOD COUNT 10.7 X10e3 (4.0-10.5)
[2016-06-22 09:13] LABS: %MB 3.1 % (0.0-4.0); MB 4.7 ng/ml
[2016-06-22 10:36] LABS: URIC ACID 6.7 mg/dL (2.6-7.2)
[2016-06-22 11:31] LABS: ALBUMIN SERUM 3.8 g/dL (3.5-5.0); BUN/CREATININE RATIO 14.44; CALCIUM SERUM 9.5 mg/dL (8.4-10.2); CREATININE SERUM 0.9 mg/dL (0.6-1.4); GLOM FILT RATE Estimated 76.2 mL/min (>60); MAGNESIUM 1.6 mg/dL (1.6-3.0); POTASSIUM 3.7 mmol/L (3.5-5.1); PROTEIN TOTAL SERUM 6.8 g/dL (6.0-8.3)
[2016-06-22 20:37] LABS: BUN/CREATININE RATIO 14.44; CALCIUM SERUM 9.4 mg/dL (8.4-10.2); CREATININE SERUM 0.9 mg/dL (0.6-1.4); GLOM FILT RATE Estimated 76.2 mL/min (>60); POTASSIUM 4.5 mmol/L (3.5-5.1)
[2016-06-22 20:39] LABS: URINE APPEARANCE CLEAR; URINE BILIRUBIN NEG (NEG); URINE BLOOD NEG (NEG); URINE COLOR YELLOW; URINE GLUCOSE NEG (NEG); URINE KETONE NEG (NEG); URINE LEUKOCYTE ESTERASE NEG (NEG); URINE NITRATE NEG (NEG); URINE PH 7.5 (5-8); URINE PROTEIN 3+ (NEG); URINE SPECIFIC GRAVITY 1.041 (1.003-1.035)
[2016-06-22 20:42] LABS: U HYALINE CASTS AUWI 0-2 /[LPF]; URINE BACTERIA AUWI 1+ (NEGATIVE); URINE SQUAMOUS EPITHELIAL CELL MOD /[HPF]
[2016-06-23 01:11] LABS: HEMATOCRIT 36.2 % (35.0-45.0); HEMOGLOBIN 12.6 gm/dL (12.0-16.0); MEAN CELL VOLUME 86.4 FL (83-96); MEAN CORPUSCULAR HGB CONC 34.8 g/dL (30-36); MEAN PLATELET VOLUME 7.1 FL (6.5-11.5); RED BLOOD COUNT 4.19 X10e (3.90-5.30); RED CELL DISTRIBUTION WIDTH 14.1 % (11.0-15.5); WHITE BLOOD COUNT 9.4 X10e3 (4.0-10.5)
[2016-06-23 01:56] LABS: ALBUMIN SERUM 3.9 g/dL (3.5-5.0); BILIRUBIN,TOTAL 0.9 mg/dL (0.2-2.0); CALCIUM SERUM 9.1 mg/dL (8.4-10.2); GLOM FILT RATE Estimated 67.1 mL/min (>60); MAGNESIUM 2.6 mg/dL (1.6-3.0); POTASSIUM 3.8 mmol/L (3.5-5.1); PROTEIN TOTAL SERUM 7.1 g/dL (6.0-8.3)
[2016-06-23 13:54] LABS: BUN/CREATININE RATIO 15.55; CALCIUM SERUM 8.9 mg/dL (8.4-10.2); CREATININE SERUM 0.9 mg/dL (0.6-1.4); GLOM FILT RATE Estimated 76.2 mL/min (>60); POTASSIUM 3.3 mmol/L (3.5-5.1)
[2016-06-23 22:52] LABS: CALCIUM SERUM 8.6 mg/dL (8.4-10.2); GLOM FILT RATE Estimated 67.1 mL/min (>60); POTASSIUM 3.4 mmol/L (3.5-5.1)
[2016-06-24 06:48] LABS: HEMATOCRIT 30.8 % (35.0-45.0); MEAN CELL VOLUME 88.2 FL (83-96); MEAN CORPUSCULAR HGB CONC 34.1 g/dL (30-36); MEAN PLATELET VOLUME 7.9 FL (6.5-11.5); RED BLOOD COUNT 3.49 X10e (3.90-5.30); RED CELL DISTRIBUTION WIDTH 14.2 % (11.0-15.5); WHITE BLOOD COUNT 7.6 X10e3 (4.0-10.5)
[2016-06-24 06:55] LABS: HEMOGLOBIN 10.5 gm/dL (12.0-16.0)
[2016-06-24 07:37] LABS: ALBUMIN SERUM 3.2 g/dL (3.5-5.0); BILIRUBIN,TOTAL 0.8 mg/dL (0.2-2.0); CALCIUM SERUM 8.9 mg/dL (8.4-10.2); GLOM FILT RATE Estimated 67.1 mL/min (>60); POTASSIUM 4.7 mmol/L (3.5-5.1); PROTEIN TOTAL SERUM 5.6 g/dL (6.0-8.3)
[2016-06-24 14:58] LABS: BUN/CREATININE RATIO 14.16; CALCIUM SERUM 8.9 mg/dL (8.4-10.2); CREATININE SERUM 1.2 mg/dL (0.6-1.4); GLOM FILT RATE Estimated 53.8 mL/min (>60); POTASSIUM 3.4 mmol/L (3.5-5.1)
[2016-06-25 06:16] LABS: HEMATOCRIT 30.9 % (35.0-45.0); HEMOGLOBIN 10.6 gm/dL (12.0-16.0); MEAN CELL VOLUME 88.2 FL (83-96); MEAN CORPUSCULAR HEMOGLOBIN 30.3 PG (28-34); MEAN CORPUSCULAR HGB CONC 34.3 g/dL (30-36); MEAN PLATELET VOLUME 7.6 FL (6.5-11.5); RED BLOOD COUNT 3.5 X10e (3.90-5.30); RED CELL DISTRIBUTION WIDTH 13.9 % (11.0-15.5); WHITE BLOOD COUNT 7.8 X10e3 (4.0-10.5)
[2016-06-25 07:00] LABS: ALBUMIN SERUM 3.2 g/dL (3.5-5.0); BILIRUBIN, DIRECT 0.1 mg/dL (0.0-0.2); BILIRUBIN,INDIRECT 0.5 mg/dL (0.0-0.9); BILIRUBIN,TOTAL 0.6 mg/dL (0.2-2.0); BUN/CREATININE RATIO 13.33; CALCIUM SERUM 9.1 mg/dL (8.4-10.2); CREATININE SERUM 1.2 mg/dL (0.6-1.4); GLOM FILT RATE Estimated 53.8 mL/min (>60); POTASSIUM 3.1 mmol/L (3.5-5.1)
[2016-06-25 12:01] LABS: ALDOSTERONE SERUM 37 ng/dL (***)
[2016-06-25 17:05] LABS: CALCIUM SERUM 8.8 mg/dL (8.4-10.2); GLOM FILT RATE Estimated 67.1 mL/min (>60)
[2016-06-25 17:07] LABS: POTASSIUM 2.9 mmol/L (3.5-5.1)
[2016-06-26 06:19] LABS: HEMATOCRIT 29.5 % (35.0-45.0); MEAN CELL VOLUME 89.3 FL (83-96); MEAN CORPUSCULAR HEMOGLOBIN 30.4 PG (28-34); MEAN PLATELET VOLUME 8.2 FL (6.5-11.5); RED BLOOD COUNT 3.31 X10e (3.90-5.30); RED CELL DISTRIBUTION WIDTH 14.1 % (11.0-15.5); WHITE BLOOD COUNT 8.7 X10e3 (4.0-10.5)
[2016-06-26 06:57] LABS: CALCIUM SERUM 8.4 mg/dL (8.4-10.2); GLOM FILT RATE Estimated 67.1 mL/min (>60); POTASSIUM 3.7 mmol/L (3.5-5.1)
[2016-06-27 06:48] LABS: HEMATOCRIT 28.8 % (35.0-45.0); HEMOGLOBIN 9.9 gm/dL (12.0-16.0); MEAN CELL VOLUME 89.5 FL (83-96); MEAN CORPUSCULAR HEMOGLOBIN 30.8 PG (28-34); MEAN CORPUSCULAR HGB CONC 34.4 g/dL (30-36); MEAN PLATELET VOLUME 7.9 FL (6.5-11.5); RED BLOOD COUNT 3.21 X10e (3.90-5.30); RED CELL DISTRIBUTION WIDTH 14.4 % (11.0-15.5); WHITE BLOOD COUNT 7.3 X10e3 (4.0-10.5)
[2016-06-27 07:17] LABS: ALBUMIN SERUM 2.7 g/dL (3.5-5.0); BILIRUBIN,TOTAL 0.5 mg/dL (0.2-2.0); BUN/CREATININE RATIO 13.33; CALCIUM SERUM 8.2 mg/dL (8.4-10.2); CREATININE SERUM 0.9 mg/dL (0.6-1.4); GLOM FILT RATE Estimated 76.2 mL/min (>60); POTASSIUM 3.8 mmol/L (3.5-5.1); PROTEIN TOTAL SERUM 5.3 g/dL (6.0-8.3)
[2016-06-27] MEDS ORDERED: ACETAMINOPHEN PO (10:47)
[2016-06-27] MEDS ORDERED: NORVASC10 MG PO (10:49)
[2016-06-27] MEDS ORDERED: LASIX PO (10:49)
[2016-06-27] MEDS ORDERED: CLONIDINE HCL0.1 MG PO (10:51)
[2016-06-27] MEDS ORDERED: HYDRALAZINE HC100 MG PO (10:52)
[2016-06-27] MEDS ORDERED: COZAAR PO (10:53)
[2016-06-27] MEDS ORDERED: SODIUM CHLORIDE1 GM PO (10:56)
[2016-06-27] MEDS ORDERED: HAIR, SKIN & N1 EACH PO (10:56)
[2016-06-27] MEDS ORDERED: POTASSIUM CHLO20 ME1 PO (11:50)
== END 2016-06-27 14:19 | disposition home or self-care (01) | DRG 641 ==
LOC: CED 16:22 → CEDOF 19:30 → C5C 06-22 00:48
PROVIDERS: Emergency Medicine; Family Medicine; Internal Medicine; Internal Medicine Nephrology
PROC: 02HV33Z Insertion of Infusion Device into Superior Vena Cava, Percutaneous Approach (ICD-10-PCS; 2016-06-22)
PROC: 0DJD8ZZ Inspection of Lower Intestinal Tract, Via Natural or Artificial Opening Endoscopic (ICD-10-PCS; principal; 2016-06-26 10:14)
DX: E87.1 Hypo-osmolality and hyponatremia (principal); E46 Unspecified protein-calorie malnutrition; I70.1 Atherosclerosis of renal artery; N28.1 Cyst of kidney, acquired; Z68.1 Body mass index [BMI] 19.9 or less, adult; R53.1 Weakness; E87.6 Hypokalemia; R91.1 Solitary pulmonary nodule; F17.210 Nicotine dependence, cigarettes, uncomplicated; I12.9 Hypertensive chronic kidney disease with stage 1 through stage 4 chronic kidney disease, or unspecified chronic kidney disease; N18.9 Chronic kidney disease, unspecified; R80.9 Proteinuria, unspecified; D64.9 Anemia, unspecified; K57.90 Diverticulosis of intestine, part unspecified, without perforation or abscess without bleeding
CPT/HCPCS: 70450; 71010; 71250; 71260; 74177; 80048; 80053; 80076; 81003; 82088; 82378; 82550; 82553; 82607; 83735; 83930; 83935; 84244; 84295; 84300; 84443; 84484; 84550; 85025; 85027; 85610; 85730; 86301; 87086; 90732; 93005; 96365; 96375; 97162; 97165; 99291; G0009; G8978-GP; G8979-GP; G8980-GP; G8987-GO; G8988-GO; G8989-GO; J0360; J2270; J2405; J3475; Q9967

== ENCOUNTER → 2016-06-21 | Outpatient (CLI) | payer BC, MEDICARE ==
[2016-06-21 10:17] LABS: HEMATOCRIT 41.6 % (35.0-45.0); HEMOGLOBIN 14.5 gm/dL (12.0-16.0); MEAN CELL VOLUME 85.8 FL (83-96); MEAN CORPUSCULAR HEMOGLOBIN 29.9 PG (28-34); MEAN CORPUSCULAR HGB CONC 34.9 g/dL (30-36); MEAN PLATELET VOLUME 7.3 FL (6.5-11.5); RED BLOOD COUNT 4.85 X10e (3.90-5.30); RED CELL DISTRIBUTION WIDTH 13.7 % (11.0-15.5); WHITE BLOOD COUNT 6.9 X10e3 (4.0-10.5)
[2016-06-21 11:31] LABS: BUN/CREATININE RATIO 18.88; CREATININE SERUM 0.9 mg/dL (0.6-1.4); GLOM FILT RATE Estimated 76.2 mL/min (>60)
[2016-06-21 11:32] LABS: CREATININE,RANDOM URINE 51 mg/dL
[2016-06-21 11:46] LABS: TOTAL PROTEIN,RANDOM URINE 196 mg/dl (<10)
[2016-06-21 12:22] LABS: POTASSIUM 2.4 mmol/L (3.5-5.1)
== END | disposition home or self-care (01) ==
LOC: CLAB 09:49
PROVIDERS: Internal Medicine Nephrology
DX: I12.9 Hypertensive chronic kidney disease with stage 1 through stage 4 chronic kidney disease, or unspecified chronic kidney disease (principal); N18.2 Chronic kidney disease, stage 2 (mild)
CPT/HCPCS: 36415; 80048; 82570; 84156; 85027